=== PATIENT | female | born 1945 | race Caucasian/White ===

== ENCOUNTER 2023-11-01 12:14 | Day surgery (SDC) | payer OTHER, SELFPAY ==
[2023-11-01] MEDS: LACTATED RINGERS 1,000 ML 42 ML IV (13:04)
--- NOTE | 2023-11-01 13:04 | PM.HP.1 ---
History of Present Illness History of Present Illness Date Patient Seen: 11/01/23 Time Patient Seen: 13:04 Chief complaint: Colonoscopy Narrative: 78-year-old woman here for screening colonoscopy. Personal history of colonic polyps. Last colonoscopy 5-10 years ago. No family history of intestinal malignancy. No abdominal concerns today. [facility] Medical History Iron deficiency Anxiety about health Periodic limb movement disorder (PLMD) Obstructive sleep apnea of adult Social History marital status: details: lives in [place] household members: spouse Smoking Status: Former smoker alcohol intake: current Meds Home Medications and Allergies Home Medications Medication Instructions Recorded Confirmed Type acyclovir 400 mg tablet 400 mg PO BID 09/02/18 11/01/23 History simvastatin 20 mg tablet 20 mg PO BEDTIME 09/02/18 11/01/23 History clindamycin phosphate 2 % vaginal See Rx Instructions vaginal DAILY 12/18/21 02/06/22 Rx cream 6 weeks #40 grams meloxicam 15 mg tablet 15 mg PO DAILY 11/01/23 11/01/23 History Allergies Allergy/AdvReac Type Severity Reaction Status Date / Time No Known Drug Allergies Allergy Verified 11/01/23 12:46 Exam Narrative Exam Narrative: General adult woman alert oriented no acute distress Chest nonlabored respiration Extremities warm well perfused Assessment & Plan Assessment & Plan narrative: The patient requires colorectal screening and colonoscopy is recommended. Technical details were discussed. Risks, benefits, alternatives explained. Risks including but not limited to myocardial infarction, aspiration, bleeding, pain, missed lesion, incomplete examination, need for further radiographic studies, intestinal injury, and need for major abdominal surgery were discussed. All questions were answered to their satisfaction, and they are in agreement with this plan.
[2023-11-01 13:07] VITALS: BP 119/66; PULSE 69; RESP 18; TEMP 36.3; O2SAT 99
[2023-11-01 13:44] VITALS: BP 105/59; PULSE 65; RESP 18; TEMP 36.1; O2SAT 96
[2023-11-01 13:49] VITALS: BP 101/59; PULSE 60; RESP 16; O2SAT 96
--- NOTE | 2023-11-01 13:51 | P.OP.COLON_ITS ---
Operative Date/Time/Diagnoses Date of procedure: 11/01/23 Time of procedure: 13:51 Pre-op diagnosis: Personal history of colonic polyps Procedure & Clinicians Study performed: Screening colonoscopy Same procedure as scheduled: Yes Indications: 78-year-old woman personal history of colonic polyps here for screening colonoscopy. Surgeon: Glenn El Procedure Notes Procedure in detail: The history and physical was performed/updated and the patient is ASA class is 2 . The procedure was discussed in detail with the patient. Potential risks complications including infection, bleeding, missed diagnosis, perforation, need for surgery, and were explained. Their questions were answered and informed consent was obtained. Patient was brought to the procedure room and placed standard monitoring equipment. The patient's vital signs were monitored continuously throughout the entire procedure. Prior to starting time-out was performed. The patient was placed in the left lateral recumbent position. Procedural sedation was administered by anesthesia. Examination began with a thorough inspection of the perianal area there was no evidence of fissures, fistulae, external hemorrhoids or cutaneous malignancy. The colonoscopy scope was then placed into the anal canal and was advanced to the cecum, which was identified by the ileocecal valve, the appendiceal orifice and the confluence of the taenia. The scope was then slowly withdrawn examining colon thoroughly in all directions, irrigating it of any residual stool. The scope was retroflexed within the rectum The patient tolerated the procedure well. They will be discharged once criteria are met. The prep was of good/excellent quality. The withdrawl time was 7 minutes. FINDINGS * Unremarkable colonoscopy. Normal healthy colonic mucosa without masses polyps or inflammation. * Internal hemorrhoids Specimen(s): none sent Impression: Normal colonoscopy Post-procedure Plan for aftercare: No further colonoscopy necessary unless symptomatic Disposition: same day surgery
[2023-11-01 13:54] VITALS: BP 100/61; PULSE 60; RESP 16; O2SAT 95
[2023-11-01 13:59] VITALS: BP 99/61; PULSE 62; RESP 16; O2SAT 97
[2023-11-01 14:06] VITALS: BP 105/61; PULSE 56; RESP 16; TEMP 36.2; O2SAT 97
== END 2023-11-01 14:19 | disposition home or self-care (01) ==
PROVIDERS: PCP Physician Assistant Medical; Referring Provider Surgery; Visit Provider Surgery
PROC: 0DJD8ZZ Inspection of Lower Intestinal Tract, Via Natural or Artificial Opening Endoscopic (ICD-10-PCS; CPT 45378; principal; 2023-11-01 13:00)
DX: Z12.11 Encounter for screening for malignant neoplasm of colon (principal); Z86.010 Personal history of colon polyps; K64.8 Other hemorrhoids
CPT/HCPCS: G0105; J2704

== ENCOUNTER → 2023-11-05 09:19 | Outpatient (CLI) | payer OTHER, SELFPAY ==
[2023-11-05 11:08] LABS: Appearance Urine UA CLEAR; Bilirubin Urine UA NEGATIVE (NEGATIVE); Color Urine UA YELLOW; Glucose Urine UA NEGATIVE (Negative); Ketones Urine UA NEGATIVE (NEGATIVE); Leukocyte Esterase Urine UA 3+ (NEGATIVE); Nitrite Urine UA NEGATIVE (Negative); Occult Blood Urine UA TRACE-INTACT (Negative); Protein Urine UA NEGATIVE (Negative); Specific Gravity Urine UA <=1.005 (1.000-1.035); Urobilinogen Urine UA 0.2 E.U./dL (0.2); pH Urine UA 6.5 (4.5-8.0)
[2023-11-05 11:11] LABS: RBC Urine None Seen (0-5/HPF); Urine Volume 10mL (spun); WBC Urine None Seen (0-5/HPF)
[2023-11-05 11:12] LABS: Bacteria Urine None Seen; Culture Indicated Urine Cult Not Indicated; Squamous Epithelial Cell Urine 5-10 /HPF (0-5/HPF)
[2023-11-05 11:19] LABS: Add Manual Diff / Slide Review NO; Basophils Absolute Auto 100 /uL (0-100); Basophils Percent Auto 1.2 % (0-2); Eosinophils Absolute Auto 200 /uL (0-450); Eosinophils Percent Auto 4.2 % (2-4); Hematocrit 37.4 % (36-46); Hemoglobin 12.8 g/dL (12.0-16.0); Lymphocytes Absolute Auto 1500 /uL (1100-4500); Lymphocytes Percent Auto 31.4 % (25-40); Mean Corpuscular HGB Conc 34.3 % (30-36); Mean Corpuscular Hemoglobin 32.1 PG (26-34); Mean Corpuscular Volume 93.5 fL (80-100); Monocytes Absolute Auto 300 /uL (0-900); Monocytes Percent Auto 5.4 % (3-14); Neutrophils Absolute Auto 2800 /uL (1500-7000); Neutrophils Percent Auto 57.8 % (50-75); Platelet Count 270 X10^3/uL (150-400); Red Cell Distribution Width 13.7 % (11.6-14.8); White Blood Cell Count 4.9 X10^3/uL (4.5-11.0)
[2023-11-05 11:27] LABS: Hemoglobin A1C% w Est Avg Glu 5.4 % (4.0-6.0)
[2023-11-05 11:47] LABS: Blood Urea Nitrogen 9 mg/dL (7-17); Calcium 9.4 mg/dL (8.4-10.2); Carbon Dioxide 29 mmol/L (22-32); Chloride 104 mmol/L (98-107); Estimated Glomerular Filt Rate > 60 mL/min (>60); Glucose 107 mg/dL (80-110); HEMOLYSIS < 15 (0-50); Potassium 4.2 mmol/L (3.4-5.1); Sodium 139 mmol/L (137-145)
== END ==
PROVIDERS: PCP Physician Assistant Medical; Referring Provider Orthopaedic Surgery; Visit Provider Orthopaedic Surgery
DX: Z01.818 Encounter for other preprocedural examination (principal); R73.9 Hyperglycemia, unspecified; Z01.812 Encounter for preprocedural laboratory examination; N39.0 Urinary tract infection, site not specified
CPT/HCPCS: 36415; 80048; 81001; 83036; 85025; 93005

== ENCOUNTER 2023-12-10 06:10 | Day surgery (SDC) | payer OTHER, SELFPAY ==
[2023-12-05 08:33] VITALS: BMI 20.9
[2023-12-10] VITALS (13 sets, daily range): BP systolic 103–132; BP diastolic 51–71; PULSE 55–75; RESP 12–60; TEMP 36.1–36.8; O2SAT 94–99; BMI 20.7
--- NOTE | 2023-12-10 | DI.RAD.S_ITS ---
PROCEDURE: XR HIP W PEL IF DONE RT 4V INDICATIONS: ANTERIOR RIGHT HIP TECHNIQUE: AP pelvis with lateral view(s) of the right hip(s). COMPARISON: [facility], CR, XR PELVIS WITH LATERAL HIP RIGHT, 10/11/2023, 16:24. [facility], CR, XR HIP W PEL IF DONE RT 2V, 12/10/2023, 10:39. FINDINGS: Right hip arthroplasty projects in the expected location. No obvious unexpected fracture. IMPRESSION: Intraoperative guidance provided. Dictated by: Quirino Paiz M.D. on 12/10/2023 at 16:55 Approved by: Quirino Paiz M.D. on 12/10/2023 at 16:55
--- NOTE | 2023-12-10 06:00 | DI.RAD.S_ITS ---
PROCEDURE: XR HIP W PEL IF DONE RT 2V INDICATIONS: BROCK TECHNIQUE: AP pelvis and lateral view of the hip acquired. COMPARISON: [facility], RICKY, XR HIP W PEL IF DONE RT 4V, 12/10/2023, 9:21. FINDINGS: Bones: Patient is status post right hip arthroplasty, with hardware components in expected positions. The hip joint appears congruent. The visualized bony structures appear intact. Soft tissues: Overlying postoperative changes are noted. No suspicious soft tissue densities. IMPRESSION: Expected post-operative appearance of a hip arthroplasty. Dictated by: Alejandrina Hughse M.D. on 12/10/2023 at 14:17 Approved by: Alejandrina Hughes M.D. on 12/10/2023 at 14:18
[2023-12-10] MEDS: VANCOMYCIN 1,000 MG/200 ML PIGGYBACK 200 MG IV (06:54)
[2023-12-10] MEDS: CELECOXIB 200 MG CAPSULE PO (06:57)
[2023-12-10] MEDS: ACETAMINOPHEN 325 MG TABLET 975 MG PO (06:57)
[2023-12-10] MEDS: LACTATED RINGERS 1,000 ML 42 ML IV ×2 (06:58→09:36)
--- NOTE | 2023-12-10 07:49 | P.OP_ITS ---
Operative Date/Time/Diagnoses Date of procedure: 12/10/23 Time of procedure: 08:00 Pre-op diagnosis: Right hip OA Post-op diagnosis: same Procedure & Clinicians Procedure: Right total hip arthroplasty anterior approach Same procedure as scheduled: Yes Indications: The patient has had progressively worsening right hip pain with radiographic c hanges consistent with arthritis. Non-operative management has failed and the patient has requested total hip replacement. The risks, benefits and alternatives to surgery were discussed with the patient prior to proceeding. Risks discussed included, but were not limited to, failure to relieve pain, leg length discrepancy, dislocation, stiffness, infection, nerve damage, deep venous thrombosis, pulmonary embolism, stroke, coma, heart attack, permanent paralysis and , as well as the potential need for eventual revision of the prosthetic. Surgeon: Sadaf Orourke Denture Finisher: Bonilla Jasso Anesthesia Type: General and Spinal Operative Notes Findings: Severe right hip OA, soft bone, adequate stability Closure Type: primary Specimen(s): none sent Prosthetic devices, grafts, tissues, transplants, or devices: Orourke and nephew R3 52 mm cup, neutral poly liner,one 6.5 mm screw, polar stem size 1 standard, 36 x -3 femoral head Estimated Blood Loss (mL): 250 Blood products transfused: none Procedure in detail: The patient was brought to the operating room. Patient was carefully positioned in the supine position. Time-out was performed and antibiotics were given. Anesthesia was induced. She was positioned in the on the table in order to allow hyperextension of the hip. The right lower extremity was prepped and draped in a standard sterile fashion. An anterior right hip incision was made 1 fingerbreadth lateral to the anterior superior iliac spine and extended distally towards the greater trochanter. Dissection was carried out through skin and subcutaneous tissues. Superficial hemostasis was achieved. The fascia over the tensor fascia janette was defined and incised with a knife. Two Allis clamps were used to grasp the fascia. Tensor fascia janette was retracted laterally. A gelpi retractor was placed. Dissection was carried out down along the neck. The circumflex vessels were carefully identified and cauterized with the Aqua Mantis. A PA was used during the procedure and was essential for intraoperative retraction and safe implantation of the components. There was good visualization of the femoral neck. A Cobra was placed superior to the neck and the gluteus fibers were carefully stripped from that superior aspect of the capsule. A 2nd retractor was placed along the inferior aspect of the neck. The rectus insertion along the capsule was partially released. A 3rd retractor that was then gently placed over the rim of the acetabulum under the rectus. Capsule was carefully incised and released from the intertrochanteric line circumferentially superior to the mid sagittal line and inferiorly to the mid sagittal line until the lesser trochanter was palpable. A tag stitch was placed both in the superior and inferior limb of the capsular insertion. Along the acetabulum capsule was also released up to the mid sagittal 12:00 position. A portion of the labrum was resected. A saw was used to perform an osteotomy at the level of the intertrochanteric line and the junction of the superior femoral neck leaving approximately 1 finger breath of residual inferior neck above the lesser trochanter. A 2nd cut was made along the femoral neck at the base of the head and a napkin ring of neck was removed. Corkscrew was placed in the femoral head and the head was removed without difficulty. Retractors were then repositioned around the acetabulum. Residual labrum was resected and additional osteophytes were removed. A reamer that was 4 mm below the templated size was placed by hand in the acetabulum and it was reamed to centralize the acetabulum. It was then reamed up to 2 under the templated size and fluoroscopy was brought in to confirm the position of the reaming and depth of reaming. I reamed 1 under the anticipated size. A trial cup was placed and noted that it was appropriately sized and fluoroscopy confirmed position and depth. The component was open and inserted without difficulty fluoroscopic imaging was used to confirm that the cup had been adequately seated and was well positioned. It was further stabilized with a single screw. Neutral poly liner was placed. The cup was tested and noted to be stable. Attention was then directed to the femur. The femur was gently hyperextended additional capsular release was performed as needed in order to allow adequate visualization of the proximal femur with elevation of the femur. Patient was placed in a hyperextended slightly adducted position with maximum external rotation. Box osteotome was used to check for any residual neck as well as sclerotic bone along the trochanter. [place] pepper was placed in the femur. Additional broaching was performed. Canal finder was used to determine the alignment of the canal and position. Size 1 broach was placed. The canal was then appropriately broached up to the templated size as long as there was adequa te stability of the broach and serial advancement of the broach without excessive impingement. Specific attention was directed at avoiding varus attempting to direct the distal aspect of the broach more anteriorly and avoiding excessive anteversion. Trial reduction showed acceptable range of motion, good stability, no posterior impingement, gnosticism of leg length and appropriate lateral shuck. I also hyperflexed the hip and checked that there was no impingement anteriorly and there was good stability with flexion, adduction and internal rotation. Marcaine and Exparel were injected. The stem was placed without difficulty. Repeat trial reduction and x-ray showed acceptable overall position, length, and no evidence of the femoral fracture. Final head was placed. Wound was meticulously irrigated with normal saline. The hip was reduced and additional Exparel and Marcaine were injected. The capsule was closed with interrupted nonabsorbable sutures. The fascia of the tensor was closed with interrupted and running Vicryl. No drain was placed. Any tensor fascia janette muscle that appeared to be contused or injured which was a minimal amount was carefully resected. Capsule around the tensor was injected with Exparel and Marcaine. The skin was closed with barbed stitches for the subcutaneous tissue and skin. We also used surgical glue. The wound was dressed sterilely. Brief Betadine soak was also used and was meticulously irrigated with normal saline. Patient was transferred to recovery room in satisfactory condition. Complications: none Post-operative Condition: stable Disposition: Acute Care Plan for aftercare: The patient will be maintained on a standard total hip replacement protocol with weight bearing as tolerated and anterior hip precautions. The patient will receive Aspirin and sequential compression devices for DVT prophylaxis. The patient will be discharged home when safe for the home environment.
--- NOTE | 2023-12-10 07:49 | PM.PREOP ---
Pre-operative Note Interval Note History & Physical reviewed/Exam performed by Physician: Yes Changes to H&P: No
[2023-12-10] MEDS: CEFAZOLIN 2 GM/100 ML PREMIX 100 ML IV ×2 (08:10→18:09)
[2023-12-10] MEDS: ACETAMINOPHEN IV 1,000 MG/100 ML VIAL 400 MG IV (08:15)
[2023-12-10] MEDS: TRANEXAMIC ACID 1,000 MG VIAL 1000 MG INJ (08:15)
--- NOTE | 2023-12-10 08:29 | SUR.OPER ---
Patient supine on padded [place] table, one arm on padded arm board at <90, other arm padded and secured with tape across patient's chest, both legs secured in padded traction boots and positioned per surgeon, padded post at patient's groin, pressure points checked and padded.
[2023-12-10] MEDS: BUPIVACAINE LIPOSOME 266 MG/20 ML VIAL INJ (08:35)
[2023-12-10] MEDS: BUPIVACAINE 0.25% (PF) 60 ML, EPINEPHrine 0.3 MG INJ (08:35)
[2023-12-10] MEDS: ONDANSETRON 4 MG/2 ML INJ IV ×3 (10:38→17:54)
[2023-12-10] MEDS: fentaNYL 100 MCG/2 ML INJ IV (10:46)
[2023-12-10] MEDS: HYDROMORPHONE 1 MG INJ IV (10:47)
[2023-12-10] MEDS: LACTATED RINGERS 1,000 ML 100 ML IV (12:27)
--- NOTE | 2023-12-10 15:35 | PT.IIE ---
Current Diagnoses Unilateral primary osteoarthritis, right hip (12/10/23) Surgery Performed Operation Date: 12/10/23 07:45 Actual Procedures p Total Hip Arthroplasty/Anterior Approach(Right) - Sadaf Orourke MD Surgical History (Last Updated 12/05/23 @ 09:12 by Abena Lanier, RN) History of biopsy (~2019) Hx of colonoscopy Medical History (Last Updated 12/06/23 @ 13:37 by Abena Lanier, RN) Anxiety about health Arthritis Hearing impaired History of COVID-19 (06/15/23) Iron deficiency Obstructive sleep apnea of adult Periodic limb movement disorder (PLMD) Physical Therapy Inpatient Evaluation/Re-Eval M1 PT/OT-IP Prior Functional Status Start: 12/10/23 17:19 Freq: NEEDED Status: Active Protocol: Document 12/10/23 15:35 AB (Rec: 12/10/23 17:35 AB [id number]) Medical Review Prior Functional Status Medical History Reviewed Yes Communication able to make needs known; with slight confusion Mobility and Gait pt stated that she was modified independent with all mobilities and ambulation without AD but started using a walking stick ~ 1 month ago for outdoor mobility but has been using 2 walking sticks for the last 2 weeks cue to hip pain Social History Household Members spouse Living Arrangements House Number of Floors (Floors) Two Floors Number of Stairs To Enter/Railing? pt will stay on the main level of the house 1 step to enter Home Environment Standard Height Toilet,Tub/ Shower Home Equipment Front Wheel Walker,Bedside Commode,Tub Transfer Bench, Hand Held Shower,Grab Bars In Shower M2 PT-IP Current Condition Start: 12/10/23 17:19 Freq: NEEDED Status: Active Protocol: Document 12/10/23 15:35 AB (Rec: 12/10/23 17:35 AB [id number]) Physical Therapy Current Condition Current Condition Evaluation Date 12/10/23 Treatment Diagnosis s/p R BROCK anterior; difficulty in walking Onset Date 12/10/23 M3 PT-IP Subjective Start: 12/10/23 17:19 Freq: NEEDED Status: Active Protocol: Document 12/10/23 15:35 AB (Rec: 12/10/23 17:35 AB [id number]) Subjective Physical Therapy Visit Type Type Initial Evaluation Visit Start Time 15:35 Visit Stop Time 16:45 Number of COSTUME DRAPER Visits 0 Physical Therapy Visit Comments Patient Comments agreeable to do PT Therapy Pain Assessment Pain When Pain Assessed At Rest Pain Present Pain Present Pain Reported Location right hip Intensity 3 Scale Used Numeric (0 - 10) Pain Management Techniques Distraction,Modification of Treatment,Re-positioning, Timing of Activity with Medications M4 PT-IP Mobility and Gait Start: 12/10/23 17:19 Freq: NEEDED Status: Active Protocol: Document 12/10/23 15:35 AB (Rec: 12/10/23 17:35 AB [id number]) PT-Bed Mobility Assessment Sit to Supine Sit to Supine Maximum Assistance,1 Person Assistance,2 Person Assistance ,Head of Bed Elevated PT-Transfer Assessment Sit to and From Stand Sit to and from Stand Moderate Assistance,Maximum Assistance,1 Person Assistance ,Use of Upper Extremities Equipment Transfer Assistive Device Front Wheeled Walker Orthotic/Prosthetic Devices or Brace: No Transfers Transfer Destination Toilet Transfer Technique ambulated Transfer Ability Level of Assist Moderate Assistance,Maximum Assistance,1 Person Assistance ,Use of Upper Extremities Comments Mobility Comments pt standing up with nurse and NAC. pt sat back on EOB and PT took over pt's care. spouse and daughter in room. obtained PLOF and home set up from pt and family. educated pt regarding anterior hip precautions for RLE. post-op folder provided and reviewed contents. pt with difficulty recalling her precautions. BP in sittin/74. pt c/o nausea with (+) emesis. nurse aware and had already given pt medication. pt wanting to just go back to bed. completed sit to stand mod A to max A and max cues and instructed to side step towards HOB for positioning using FWW mod A and max cues. pt then stated that she needs to use the toilet. instructed to ambulate to the toilet and pt completed ~ 12 ft using FWW mod A and max cues. max A for controlled sitting onto the toilet. required max A for sit to stand from the toilet. pt ambulated to the bed using fWW mod A and max cues. completed sit to supine max A x 1-2 and max cues. positioned pt on the bed. call light and table placed within reach. set up caregiver training with pt and spouse. pt initially refusing caregiver training and stated that he was not informed. told spouse that that is why PT is arranging caregiver training and educated spouse on rationale for the training. spouse worried that he has to come back tomorrow. PT asked pt on who will be picking her up tomorrow if she goes home and stated that her spouse will be coming to get her. spouse then agreed to do training tomorrow. caregiver training 12/11/23 @ 9 am. Gait Assessment Gait Gait Assistance Required: Moderate Assistance Distance (Feet) 12 Able to Maintain Weight Bearing Status Yes During Gait Assistive Devices Assistive Device Gait Belt,Front Wheeled Walker Orthotic/Prosthetic Devices or Brace: No Gait Deviations General Gait Pattern Decreased Stride Length, Decreased Feet Clearance Factors Limiting Gait Function Factors Limiting Gait Function Decreased Activity Tolerance, Decreased Strength,Difficulty Following Directions,Limited Range of Motion,Pain,Poor Balance,Poor Safety Awareness PT-Balance Assessment Sitting Balance and Reactions Static Sitting Balance Ability Good Dynamic Sitting Balance Ability Good Standing Balance and Reactions Static Standing Balance Ability Fair Dynamic Standing Balance Ability Poor Device Used FWW M5 PT-IP Objective Assessments Start: 12/10/23 17:19 Freq: NEEDED Status: Active Protocol: Document 12/10/23 15:35 AB (Rec: 12/10/23 17:35 AB [id number]) Orientation Orientation/Cognition Level of Alertness Alert Orientation Name Safety Awareness Decreased Safety Awareness Memory Description Short Term Impaired Gross Range of Motion Lower Extremity ROM Assessment Within Functional Limits Strength Lower Extremity Strength Assessment Right Impaired Hip 3-/5 Knee 3+/5 Sensation Assessment Sensation Gross Sensation WNL Muscle Tone Muscle Tone WNL Yes M6 PT-IP Treatment Start: 12/10/23 17:19 Freq: NEEDED Status: Active Protocol: Document 12/10/23 15:35 AB (Rec: 12/10/23 17:35 AB [id number]) Physical Therapy Treatment Education Education Provided Precautions,Weight Bearing Status,Post-Op Packet,Safety M7 PT-IP Assessment and Plan Start: 12/10/23 17:19 Freq: NEEDED Status: Active Protocol: Document 12/10/23 15:35 AB (Rec: 12/10/23 17:35 AB [id number]) PT Summary Assessment and Plan Potential Rehabilitation Potential Fair Status of Condition at Evaluation Evolving Summary Impairments Pain,ROM,Strength,Balance, Coordination,Sensation,Tone, Cognition,Bed Mobility, Transfers,Gait,Activity Tolerance Assessment Summary pt is a 78 y/o F s/p R BROCK anterior approach POD 0. pt has R hip anterior precautions and is WBAT. pt requiring mod to max A with mobility using FWW and was not able to tolerate much activity today with c/o nausea and (+) emesis . pt also required max cues with all tasks for safety and hip precautions needing one step cues with all tasks. caregiver training set up for tomorrow at 9 am. will continue to assess progress. Goals Bed Mobility Goal Standby Assistance Transfer Goal Standby Assistance,Front Wheeled Walker Gait Goal Standby Assistance,Front Wheel Walker Gait Distance 200 Other Goals up/down 1 step using FWW SBA Days to Meet Goals 5 Frequency of Treatment Frequency Of Treatment Twice a Day Treatment Plan Physical Therapy Treatment Plan Bed Mobility Training,Transfer Training,Gait Training, Therapeutic Exercise,Balance Retraining,Post Op Education, Discharge Planning,Hot or Cold Pack,Neuromuscular Re-ed, Coordination Retraining,Manual Therapy Precautions Anterior Hip Precautions No Hip Extension,No Hip External Rotation Weight Bearing Status Weight Bearing Status Weight Bear as Tolerated Allowed Weight Bearing Amount (enter % RLE WBAT or #) (%) Recommendations To Nursing Amount of Assist Needed 1 Person Assist Discharge Recommendations PT Discharge Recommendations Home with 31/12 Assist Available,Home Health, Outpatient PT Transportation Needs at Discharge Private Vehicle,Wheelchair/ Cabulance
[2023-12-10 16:03] LABS: MRSA (Nasal) PCR NOT DETECTED (Not Detect)
--- NOTE | 2023-12-10 16:56 | OT.IPNOTE ---
Pt just finished seeing PT and just wanting to rest at this time. Pt not going home today and therefore to see pt for OT eval tomorrow.
[2023-12-10] MEDS: OXYCODONE IR 5 MG TABLET PO (18:58)
[2023-12-10] MEDS: ASPIRIN EC 81 MG TABLET PO (20:30)
[2023-12-10] MEDS: DOCUSATE 100 MG CAPSULE PO (20:30)
[2023-12-10] MEDS: ATORVASTATIN 20 MG TABLET 10 MG PO (20:30)
[2023-12-10] MEDS: ACYCLOVIR 400 MG TABLET PO (20:30)
[2023-12-11] MEDS: CEFAZOLIN 2 GM/100 ML PREMIX 100 ML IV (00:07)
[2023-12-11] MEDS: OXYCODONE IR 5 MG TABLET PO (03:27)
[2023-12-11 04:06] LABS: Hematocrit 28.6 % (36-46); Hemoglobin 9.9 g/dL (12.0-16.0)
--- NOTE | 2023-12-11 06:37 | PC.NURSE ---
operation shift supervisor RN note pt rested quietly all night, c/o mod pain to R hip, hesitant to take pain meds, x1 dose of oxycodone, up to commode and unable to void, bladder scanned for 600cc urine, x3 attempts at straight cath and unable to place, pt denies bladder discomfort/distention
[2023-12-11 08:00] VITALS: BP 107/53; PULSE 63; RESP 16; TEMP 36.8; O2SAT 96
--- NOTE | 2023-12-11 08:34 | PM.DS.1 ---
History of Present Illness History of Present Illness Date Patient Seen: 12/11/23 Time Patient Seen: 08:34 Chief complaint: Hip pain Narrative: Hip pain has been moderate. No fever or chills. No nausea or vomiting. Patient difficulty urinating yesterday evening required in and out catheterization. She was able to urinate on her own this morning. Patient has assistance at home. Discharge Providers Provider Discharge Date: 12/11/23 Primary care physician: Melissa Cutler PA-C Consults: 12/06/23 13:41 Consult to Anesthesiology Routine Comment: Consulting Provider: Anesthesiologist Reason for consultation: PAC courtesy re: Abnormal pre-op EKG 12/10/23 06:00 Consult to Anesthesiology Routine Comment: Consulting Provider: Anesthesiologist Reason for consultation: Regional block for post operative pain control Has provider been notified: No 12/10/23 11:43 Consult to Discharge Planning Routine Comment: Consult to Occupational Therapy Evaluate & Treat Comment: Physician Instructions: Evaluate and treat Consult to Physical Therapy Evaluate & Treat Comment: Physician Instructions: post op BROCK protocol Discharge provider: Bonilla Jasso PA-C Summary Hospital Course Discharge Diagnosis: Right hip osteoarthritis Urinary retention Hospital Course: Right total hip arthroplasty anterior approach Same procedure as scheduled: Yes Indications: The patient has had progressively worsening right hip pain with radiographic changes consistent with arthritis. Non-operative management has failed and the patient has requested total hip replacement. The risks, benefits and alternatives to surgery were discussed with the patient prior to proceeding. Risks discussed included, but were not limited to, failure to relieve pain, leg length discrepancy, dislocation, stiffness, infection, nerve damage, deep venous thrombosis, pulmonary embolism, stroke, coma, heart attack, permanent paralysis and , as well as the potential need for eventual revision of the prosthetic. Surgeon: Sadaf Orourke Boat Motor Mechanic: Bonilla Jasso Anesthesia Type: General and Spinal Operative Notes Findings: Severe right hip OA, soft bone, adequate stability Closure Type: primary Specimen(s): none sent Prosthetic devices, grafts, tissues, transplants, or devices: Orourke and nephew R3 52 mm cup, neutral poly liner,one 6.5 mm screw, polar stem size 1 standard, 36 x -3 femoral head Estimated Blood Loss (mL): 250 Blood products transfused: none Patient admitted to the hospital for the above-mentioned procedure. Patient consented to the same. Patient underwent right total hip arthroplasty, anterior approach December 10, 2023. Patient back in her room recovering well as in stable condition. Patient has worked with physical therapy. She will work again with physical therapy this morning prior to discharge if safe for home environment. Patient did have urinary retention yesterday evening requiring in and out catheterization. Patient was able to urinate on her own this morning. Again she has assistance at home. She will be weight-bearing as tolerated with anterior precautions. Multimodal pain management. Follow up outpatient orthopedic clinic in 2 weeks. Discharge home today if safe for home environment. Status at Discharge Cognitive/behavioral status at discharge: at baseline, oriented Functional status at discharge: uses cane/walker Overall status at discharge: patient is progressing back to baseline Exam Vital Signs (past 8 hours): Oxygen Delivery Method Room Air Oxygen Flow Rate 0 Narrative Exam Narrative: 78-year-old female sitting at bedside chair having breakfast. No apparent distress. Dressing is clean, dry and intact. Neurovascular status is intact bilateral lower extremities. Const General: cooperative and comfortable Nutritional Appearance: average body habitus Orientation: alert Resp Effort & Inspection: normal respiratory effort Objective Labs 12/11/23 03:40 Labs: Laboratory Results - last 24 hr 12/10/23 12/11/23 11:40 03:40 Hgb 9.9 L Hct 28.6 L Nasal Screen MRSA (PCR) Not detected [facility] Medical History (Updated 12/06/23 @ 13:37 by Abena Lanier RN) Hearing impaired History of COVID-19 (06/15/23) Arthritis Iron deficiency Anxiety about health Periodic limb movement disorder (PLMD) Obstructive sleep apnea of adult Surgical History (Updated 12/05/23 @ 09:12 by Abena Lanier RN) History of biopsy (~2018) Hx of colonoscopy Social History marital status: details: lives in [place] household members: spouse Smoking Status: Former smoker alcohol intake: current Discharge Assessment & Plan Assessment and Plan Assessment: Patient progressing as expected status post right total hip arthroplasty, anterior approach. Urinary retention, resolved Plan of Treatment: Weight-bearing as tolerated, anterior Hip precautions multimodal pain management aspirin 81 mg b.i.d. x6 weeks Discharge home today after physical therapy if safe for home environment Discharge Plan Discharge Plan Patient Disposition: Home Provider Discharge Comment: Pt received postop meds from office. Discharge orders & Medications Discharge Orders: Discharge (Order); Ordered 12/11/23 Ordered By: Bonilla Jasso Prescriptions: New acetaminophen 325 mg Tablet 650 mg PO Q6H PRN (Reason: Fever/Mild Pain (1-3)) Qty: 60 0RF aspirin 81 mg Tablet,Delayed Release (Dr/Ec) 81 mg PO BID Qty: 60 0RF Continued meloxicam 15 mg tablet 15 mg PO DAILY ferrous sulfate 325 mg (65 mg iron) Tablet 325 mg PO DAILY acyclovir 400 mg tablet 400 mg PO BID simvastatin 20 mg tablet 20 mg PO BEDTIME Follow up/Referrals: Sadaf Orourke MD [Physician] - 12/23/23 1:00 pm (Follow up w/ Pretty Hughes PA-C, at [facility] office in [place].) Melissa Cutler PA-C [Primary Care Provider] - Diet/Activity/Treatments Diet: Diet as Tolerated Activity: Weightbearing as tolerated. Anterior hip precautions. Cold/Heat Therapy: Ice to hip as needed for pain. Skin/Wound/Dressing Care Report to your healthcare provider any signs of infection, such as:: chills, fever, night sweats, unusual drainage and unusual redness Dressing: May shower. Leave dressing in place until follow up in office. No bathing or otherwise soaking incision. Call the office if the dressing becomes saturated inside. Visit Report/Discharge Packet Instructions: DI for Hip Replacement, DI for Prescription Opioid Use Stand Alone Forms: Patient Portal/API, Surgery Discharge Discharge Data Primary Care Provider: Melissa Cutler Attending Provider: Sadaf Orourke Quality VTE Deep Vein Thrombosis/Pulmonary Embolism Present on Admission: No
[2023-12-11] MEDS: ACYCLOVIR 400 MG TABLET PO (09:04)
[2023-12-11] MEDS: DOCUSATE 100 MG CAPSULE PO (09:05)
[2023-12-11] MEDS: ASPIRIN EC 81 MG TABLET PO (09:05)
[2023-12-11] MEDS: FERROUS SULFATE 325 MG TABLET PO (09:05)
[2023-12-11] MEDS: MELOXICAM 7.5 MG TABLET 15 MG PO (09:05)
--- NOTE | 2023-12-11 09:12 | PT.IPTN ---
Current Diagnoses Unilateral primary osteoarthritis, right hip (12/10/23) Surgery Performed Operation Date: 12/10/23 07:45 Actual Procedures p Total Hip Arthroplasty/Anterior Approach(Right) - Sadaf Orourke MD Physical Therapy Treatment Note M2 PT-IP Current Condition Start: 12/10/23 17:19 Freq: NEEDED Status: Active Protocol: Document 12/10/23 15:35 AB (Rec: 12/10/23 17:35 AB [id number]) Physical Therapy Current Condition Current Condition Evaluation Date 12/10/23 Treatment Diagnosis s/p R BROCK anterior; difficulty in walking Onset Date 12/10/23 M3 PT-IP Subjective Start: 12/10/23 17:19 Freq: NEEDED Status: Active Protocol: Document 12/11/23 10:12 TS (Rec: 12/11/23 10:26 TS [id number]) Subjective Physical Therapy Visit Type Type Treatment Note Visit Start Time 09:12 Visit Stop Time 09:40 Number of OYSTER BUYER Visits 1 Physical Therapy Visit Comments Patient Comments Pt found resting in chair, family in room, pt is agreeable to PT. Therapy Pain Assessment Pain When Pain Assessed At Rest Pain Present Pain Present Pain Reported Location right hip Intensity 1 Scale Used Numeric (0 - 10) M4 PT-IP Mobility and Gait Start: 12/10/23 17:19 Freq: NEEDED Status: Active Protocol: Document 12/11/23 10:12 TS (Rec: 12/11/23 10:26 TS [id number]) PT-Bed Mobility Assessment Sit to Supine Sit to Supine Moderate Assistance,1 Person Assistance PT-Transfer Assessment Sit to and From Stand Sit to and from Stand Minimal Assistance,1 Person Assistance,Use of Upper Extremities Equipment Transfer Assistive Device Gait Belt,Front Wheeled Walker Orthotic/Prosthetic Devices or Brace: No Comments Mobility Comments Spouse donned gait belt prior to mobility. Pt recalled 2/2 hip precautions. STS Vasquez form spouse with FWW. She ambulated with a slow step to gait and use of FWW. She performed steps x2 with FWW and cues for sequencing. Sit to supine into bed Vasquez for Le 's from spouse. Pt was left with OT. Gait Assessment Gait Gait Assistance Required: Contact Guard Assist Distance (Feet) 20 Able to Maintain Weight Bearing Status Yes During Gait Assistive Devices Assistive Device Gait Belt,Front Wheeled Walker Orthotic/Prosthetic Devices or Brace: No Gait Deviations General Gait Pattern Decreased Stride Length, Decreased Feet Clearance Factors Limiting Gait Function Factors Limiting Gait Function Decreased Activity Tolerance, Decreased Strength,Difficulty Following Directions,Limited Range of Motion,Pain,Poor Balance,Poor Safety Awareness Stair Climbing Assessment Evaluation Level of Assist On Stairs Minimal Assistance,1 Person Assistance Devices Stair Climbing Assistive Devices Front Wheel Walker Technique/Endurance Stair Climbing Direction Ascend and Descend Number of Steps Climbed 2 PT-Balance Assessment Sitting Balance and Reactions Static Sitting Balance Ability Good Dynamic Sitting Balance Ability Good Standing Balance and Reactions Static Standing Balance Ability Fair Dynamic Standing Balance Ability Fair Device Used FWW M5 PT-IP Objective Assessments Start: 12/10/23 17:19 Freq: NEEDED Status: Active Protocol: Document 12/10/23 15:35 AB (Rec: 12/10/23 17:35 AB [id number]) Orientation Orientation/Cognition Level of Alertness Alert Orientation Name Safety Awareness Decreased Safety Awareness Memory Description Short Term Impaired Gross Range of Motion Lower Extremity ROM Assessment Within Functional Limits Strength Lower Extremity Strength Assessment Right Impaired Hip 3-/5 Knee 3+/5 Sensation Assessment Sensation Gross Sensation WNL Muscle Tone Muscle Tone WNL Yes M6 PT-IP Treatment Start: 12/10/23 17:19 Freq: NEEDED Status: Active Protocol: Document 12/11/23 10:12 TS (Rec: 12/11/23 10:26 TS [id number]) Physical Therapy Treatment Education Education Provided Precautions,Weight Bearing Status,Post-Op Packet,Safety M7 PT-IP Assessment and Plan Start: 12/10/23 17:19 Freq: NEEDED Status: Active Protocol: Document 12/11/23 10:12 TS (Rec: 12/11/23 10:26 TS [id number]) PT Summary Assessment and Plan Potential Rehabilitation Potential Fair Summary Impairments Pain,ROM,Strength,Balance, Coordination,Sensation,Tone, Cognition,Bed Mobility, Transfers,Gait,Activity Tolerance Progress Towards Goals Progressing Toward Goals Assessment Summary Pt is progressing well with her mobility. She is Vasquez for STS from spouse and with use of FWW. She progressed her giat to ~20' and to stairs x2 with FWW. Spouse was instructed in and performed donning of gait belt, STS, gait and stair training. Goals Bed Mobility Goal Standby Assistance Transfer Goal Standby Assistance,Front Wheeled Walker Gait Goal Standby Assistance,Front Wheel Walker Gait Distance 200 Other Goals up/down 1 step using FWW SBA Days to Meet Goals 5 Frequency of Treatment Frequency Of Treatment Twice a Day Treatment Plan Physical Therapy Treatment Plan Bed Mobility Training,Transfer Training,Gait Training, Therapeutic Exercise,Balance Retraining,Post Op Education, Discharge Planning,Hot or Cold Pack,Neuromuscular Re-ed, Coordination Retraining,Manual Therapy Precautions Anterior Hip Precautions No Hip Extension,No Hip External Rotation Weight Bearing Status Weight Bearing Status Weight Bear as Tolerated Allowed Weight Bearing Amount (enter % RLE WBAT or #) (%) Recommendations To Nursing Amount of Assist Needed 1 Person Assist Discharge Recommendations PT Discharge Recommendations Home with 31/12 Assist Available,Outpatient PT Transportation Needs at Discharge Private Vehicle
--- NOTE | 2023-12-11 09:25 | CM.DANOTE ---
Initial DCP Assessment Visit Note Reviewed EMR and team rounds for status updates, met with pt at bedside to introduce self and role. Pt was found to be sitting upright in the recliner, alert/oriented, and able to discuss her concerns/preferences for d/c. Pt lives independently with her spouse in their own home in [place]. She will be discharging home this morning after working with PT, her will transport her once therapy is completed. Pt denies any d/c assistance or resource needs from CM at this time. Payor: [facility] Adv Attending: Dr. Orourke Pt is a 78 year-old F post-op day 1 from her R-hip total arthroplasty surgery. She has been experiencing debilitating R-hip pain since this last July, which has not improved with conservative efforts such as PT and injections. She already has a plan for OP PT in her community, and they have been able to get all of their DME from the local [employer] in [place]. Pt/spouse will be having cg training this morning at 9:00am, after she will discharge home w/Ortho f/u appt. in 2-weeks for wound check. Discharge Planning/Care Management Advanced directive, confirm from FAMILY Start: 12/10/23 12:40 Freq: Q24H Status: Active Protocol: Document 12/10/23 14:00 IAN (Rec: 12/10/23 14:03 IAN [id number]) Advance Directive, confirm on record Time 14:03 Person contacted patient Copy received No CM Discharge Assessment Start: 12/11/23 09:22 Freq: Status: Active Protocol: Document 12/11/23 09:22 DPL (Rec: 12/11/23 09:25 DPL [id number]) Discharge Planning Assessment Assigned Shot Bagger NOLVIA Willis Advance Directives? Yes Advance Directives on File No History Provided By Patient,Medical Record Has Patient been admitted in last 30 No days? Prior Living Arrangements House Household Members spouse Type of transporation used prior to Drives own vehicle admit Independent with ADL's Yes Is patient alert and oriented? Yes Caregiver for Another No Community Services used prior to Physical Therapy admission: DME Already Rented / Owned Elevated Toilet Seat,FWW / Walker Patient/Family Preference OP PT Therapy Discharge Plan Home Community Services Physical Therapy Transportation Arrangement Spouse Referrals Initiated None needed Whiteboard Updated in Patient Room with Yes name and ext. # of Shot Bagger Review Status In Process Please Provide Date Initial DC 12/11/23 Assessment Was Performed Pre-Anesthesia Assessment Start: 12/05/23 08:33 Freq: Status: Active Protocol: Document 12/05/23 08:33 CAB (Rec: 12/05/23 09:37 CAB [id number]) Pre-Anesthesia Assessment Patient Information Reviewed Via Phone Assessment Assessment Completed With Patient Diagnostic Results BMP/CMP,CBC,EKG Comment Labs/EKG @ [facility] 11/05/23 Primary Care Provider Melissa Cutler Comment Visit 09/19/23, clearance form 10/11/23 scanned and in surgery folder Seen Specialist in Last 12 Months Yes Specialist Seen Manufacturing Operator,General surgeon, Orthopedist,Sleep specialist Primary Language Marshallese Contract Clerk Automobile Required No Height 172.72 cm Weight 62.596 kg Body Mass Index (BMI) 20.9 Hearing Ability Hearing Impaired,Use of Hearing Aid Visual Assist Glasses Dentition Type Teeth, Natural Present Barriers to Learning None Hx Anesthesia Reactions No Hx Family Anesthesia Reaction No Hx Malignant Hyperthermia No Hx Blood Transfusions No Hx Blood Transfusion Reaction No Anesthesia Review Requested Yes: PAC courtesy re: Abnormal pre-op EKG Inspector Balance Bridge No alcohol intake current alcohol intake frequency holidays/special occasions only Smoking Status Former smoker how long ago did patient quit smoking Quit 55 years ago Substance Use Type does not use Pain Present Pain Reported Musculoskeletal Symptoms Abnormal Gait,Difficulty Walking,Joint Pain History of Falling (Recent or History of No ) Patient is completely paralyzed or No completely immobile Mental Status Oriented to own ability Comment Walking stick for ambulation Is patient on oxygen? No Does patient have HAIR/SOB No Hx Sleep Apnea Yes CPAP/BIPAP use prescribed and used routinely Will Bring CPAP/BIPAP DOS Yes Currently Taking a Beta Boni No Can You Climb a Flight of Stairs Without Yes SOB Hx Chest Pain No Hx SOB No Hx Syncope or Dizziness No Anti-Coagulant Therapy No Has a Pasteurizing Machine Operator No Cardiac Testing No Hx Pacemaker/ICD No Pacemaker Rep Required? No Cardiac Clearance Received No Diet Type At Home Regular Dysphagia No Gastrointestinal Symptoms None Urinary Catheter Present No Hx Urinary Self Catheterization No Diabetes No HgbA1C 5.4 Date 11/05/23 Patient No Lactating No Presence of External or Internal Medical No Devices Marital Status Lives With spouse Current Living Arrangements House Number of Floors (Floors) Two Floors Support System Child/Children,Spouse Comment Daughter will also stay w/pt to assist w/care at DC Does the Patient Have Assistance After Yes Surgery Patient Discharge Plan Description Return Home Comment Pt advised same day surgery per surgeon Feels Safe in Current Environment Yes Been Physically Hurt or Threatened By a No Person in Current Environment Do you have thoughts of harming yourself None or others? Are you currently considering suicide? No Do you have a plan to hurt yourself or No Plan others? Do You Have Any Spiritual Beliefs That No May Affect Your HC Choices? Do You Have Any Cultural Practices That No May Affect Your HC Choices? Comment Buddahism Who Can We Speak to About Patient's Care Family, friends Identifying Code for Release of Patient Declines to issue Information Health Care Proxy/Next of Kin Alexey () Health Care Proxy Emergency Contact Name Pebbles (daughter) Emergency Contact Advance Directives? Yes Advance Directives on File No Requested Patient Bring Advanced Yes Directives DOS Power of Oil Well Services Field Supervisor Yes Power of Oil Well Services Field Supervisor Name Alexey () Power of Oil Well Services Field Supervisor PAC Instructions Bring CPAP/BIPAP,Do not shave/ clip surgical site,Durable medical equipment,Medications to take/avoid,Nasal antibiotic ,No ETOH/petroleum product on skin DOS,NPO,Post-op transportation,Pre-surgical wash,Sensory aids,Sturdy shoes /comfortable clothes,Do not bring valuables and remove jewelry
[2023-12-11] MEDS: ONDANSETRON 4 MG ODT PO (10:45)
--- NOTE | 2023-12-11 12:09 | OT.IP.EVAL ---
Current Diagnoses Unilateral primary osteoarthritis, right hip (12/10/23) Surgery Performed Operation Date: 12/10/23 07:45 Actual Procedures p Total Hip Arthroplasty/Anterior Approach(Right) - Sadaf Orourke MD Past Medical History (Last Updated 12/06/23 @ 13:37 by Abena Lanier, RN) Anxiety about health Arthritis Hearing impaired History of COVID-19 (06/15/23) Iron deficiency Obstructive sleep apnea of adult Periodic limb movement disorder (PLMD) Surgical History (Last Updated 12/05/23 @ 09:12 by Abena Lanier RN) History of biopsy (~2019) Hx of colonoscopy Occupational Therapy Inpatient Evaluation/Re-Eval M1 PT/OT-IP Prior Functional Status Start: 12/10/23 17:19 Freq: NEEDED Status: Discharge Protocol: Document 12/11/23 09:13 [facility] (Rec: 12/11/23 12:29 [facility] [id number]) Medical Review Prior Functional Status Medical History Reviewed Yes Communication able to make needs known; with slight confusion Mobility and Gait pt stated that she was modified independent with all mobilities and ambulation without AD but started using a walking stick ~ 1 month ago for outdoor mobility but has been using 2 walking sticks for the last 2 weeks cue to hip pain Activities of Daily Living and IADL's Pt able to do ADL needs but had pain. Social History Household Members spouse Living Arrangements House Number of Floors (Floors) Two Floors Number of Stairs To Enter/Railing? pt will stay on the main level of the house 1 step to enter Home Environment Standard Height Toilet,Tub/ Shower Home Equipment Front Wheel Walker,Bedside Commode,Tub Transfer Bench, Hand Held Shower,Grab Bars In Shower M2 OT-IP Current Condition Start: 12/11/23 12:10 Freq: Status: Discharge Protocol: Document 12/11/23 09:13 [facility] (Rec: 12/11/23 12:29 [facility] [id number]) Occupational Therapy Current Condition Current Condition Evaluation Date 12/11/23 Treatment Diagnosis S/P R BROCK Diagnosis Onset Date 12/10/23 Post Operative Precautions Anterior Hip Precautions No Hip Extension,No Hip External Rotation M3 OT- IP Subjective and Pain Start: 12/11/23 12:10 Freq: Status: Discharge Protocol: Document 12/11/23 09:13 [facility] (Rec: 12/11/23 12:29 [facility] [id number]) OT- Subjective Occupational Therapy Visit Type Type Initial Evaluation Visit Start Time 09:13 Visit Stop Time 10:21 Occupational Therapy Visit Comments Patient Comments Pt's and daughter present for caregiver training . Patient/Caregiver Goals To go home. OT Pain Assessment Pain When Pain Assessed During Mobility Pain Present Pain Present Pain Reported M4 OT- IP ADL's Start: 12/11/23 12:10 Freq: Status: Discharge Protocol: Document 12/11/23 09:13 [facility] (Rec: 12/11/23 12:29 [facility] [id number]) OT RKH-[id number]-[id number] General Evaluation Self-Feeding Ability Independent OT ADL-Grooming General Evaluation Grooming Ability Independent Comments OT Grooming Comments Able to do while standing at the sink with FWW. OT ADL-Oral Care General Eval Oral Care Ability Independent OT ADL-Dressing General Eval Upper Body Dressing Ability Independent Lower Body Dressing Ability Moderate Assistance Comments OT Dressing Comments Able to practice use of sock aid and bulb planter and needing assist to tie her shoes. OT ADL-Toileting General Evaluation Toileting Ability Minimal Assistance Comments OT Toileting Comments Pt needing assist for brief management needs. Pt able to stand to wipe and suggested use of wet one and pads/brief if needed at night so not having to hurry to the bathroom. OT ADL-Bathing Comments OT Bathing Comments Educated pt for care of dressing for showering needs. M5 OT- IP IADL's Start: 12/11/23 12:10 Freq: Status: Discharge Protocol: Document 12/11/23 09:13 [facility] (Rec: 12/11/23 12:29 [facility] [id number]) OT-Instrumental Activities of Daily Living Home Safety Awareness Awareness of Need for Assistance at Home Good Awareness Ability to Problem Solve Emergency Able to Problem Solve Situations Home Safety Comments Pt's family to be there to assist her. Meal Preparation Meal Preparation Caregiver Provides Assist Grommet Man Grommet Man Caregiver Provides Assist M6 OT- IP Functional Cognition Start: 12/11/23 12:10 Freq: Status: Discharge Protocol: Document 12/11/23 09:13 [facility] (Rec: 12/11/23 12:29 [facility] [id number]) Cognitive Factors Limiting Selfcare Function Cognitive Ability Level of Alertness Alert Patient Orientation Name,Place,Situation Attention Span Ability Capable of Focused Attention, Capable of Sustained Attention Ability to Follow Commands Able to Follow One Step Commands Safety Awareness Decreased Ability to Apply Precautions Cognitive Comments Cognitive Assessment Comments Pt needing cues for reassurance and at times to be able to follow her hip precautions. Able to educate pt's how to assist her and to be sure to communicate well with each other. OT- Vision and Hearing OT- Hearing Assessment OT- Hearing Assessment Hearing Impaired,Use of Hearing Aids OT- Vision Assessment Vision Assessment Comments Pt wears glasses. M7 OT- IP Mobility and Balance Start: 12/11/23 12:10 Freq: Status: Discharge Protocol: Document 12/11/23 09:13 [facility] (Rec: 12/11/23 12:29 [facility] [id number]) OT- Bed Mobility Assessment Supine to Sit Supine to Sit Assist Moderate Assistance Sit to Supine Sit to Supine Assist Moderate Assistance OT-Transfer Assessment Sit to and From Stand Sit to and from Stand Minimal Assistance,Moderate Assistance Transfers Transfer Ability Contact Guard Assistance Technique Transfer Destination Bed,Chair,Toilet Devices Transfer Assistive Devices Gait Belt,Front Wheeled Walker Comments Mobility Comments Pt needing from MIN to MOD to stand to the FWW. Once on her feet able to walk with CGA with the FWW. Pt's able to safety assist pt for mobility needs after education . OT- Balance Assessment Sitting Balance and Reactions Static Sitting Balance Ability Good Dynamic Sitting Balance Ability Good Standing Balance and Reactions Static Standing Balance Ability Good Dynamic Standing Balance Ability Fair M8 OT- IP Objective Assessments Start: 12/11/23 12:10 Freq: Status: Discharge Protocol: Document 12/11/23 09:13 [facility] (Rec: 12/11/23 12:29 [facility] [id number]) OT Gross Range of Motion Upper Extremity Range of Motion Assessment Within Functional Limits OT Strength Upper Extremity Strength Assessment Within Functional Limits M9 OT- IP Assessment and Plan Start: 12/11/23 12:10 Freq: Status: Discharge Protocol: Document 12/11/23 09:13 [facility] (Rec: 12/11/23 12:29 [facility] [id number]) OT Summary Assessment and Plan Potential Rehabilitation Potential Good Analytic Complexity at Evaluation Low Summary OT Impairments Pain,Strength,Balance, Functional Mobility,Grooming, Dressing,Toileting,Bathing, Toilet Transfers,Shower Transfers,Activity Tolerance Progress Towards Goals Progressing Toward Goals Assessment Summary Pt low complexity and main barriers are pain, a step, needing assist to stand for lower surfaces and to help get her leg into and out of the bed, and for ADL needs. Pt's able to participate in caregiver training and pt looking to go home and attend outpt PT. Goals Self-Feeding Goal Independent Grooming Goal Independent Dressing Goal Independent,Long Handled Shoe Horn,Dermatology Physician Assistant,Sock Aid Toileting Goal Independent Bathing Goal Minimal Assistance Toilet Transfer Goal Independent Shower Transfer Goal Contact Guard Assistance Days to Meet Goals 10 Frequency of Treatment Frequency Of Treatment Once a Day Treatment Plan OT Treatment Plan ADL Training,Functional Mobility,Patient/Family Education,Discharge Planning Discharge Recommendations OT Discharge Recommendations Home with 24/ Assist Available,Outpatient PT Transportation Needs at Discharge Private Vehicle
== END 2023-12-11 12:20 | disposition home or self-care (01) ==
LOC: OR 06:11 → ICU 11:31
PROVIDERS: PCP Physician Assistant Medical; Referring Provider Orthopaedic Surgery; Visit Provider Orthopaedic Surgery
PROC: (CPT 27130; principal; 2023-12-10 07:45)
DX: M16.11 Unilateral primary osteoarthritis, right hip (principal); M25.751 Osteophyte, right hip
CPT/HCPCS: 27130; 36415; 73502; 73503; 76000; 85014; 85018; 87797; 97116; 97162; 97165; 97530; 97535; C1776; C9290; J0136; J0171; J0690; J1170; J2405; J2704; J3010